=== PATIENT | male | born 1985 | race Hispanic/Latino ===

== ENCOUNTER 2023-11-28 19:50 | Emergency (ER) | payer SELFPAY ==
[2023-11-28 19:53] VITALS: BP 126/82
[2023-11-28 20:06] LABS: % Basophils 0.3 % (0-2); % Eosinophils 0.2 % (0-6); % Immature Granulocytes 0.5 % (0-0.5); % Lymphocytes 14.3 % (20.5-51.1); % Monocytes 7.1 % (1.7-9.3); % Neutrophils 77.6 % (42.2-75.2); Absolute Basophils 0.1 10^3/uL (0-0.2); Absolute Immature Granulocytes 0.1 10^3/uL (0-0.05); Absolute Lymphocytes 2.8 10^3/uL (1.2-3.4); Absolute Monocytes 1.4 10^3/uL (0.1-0.6); Absolute Neutrophils 15.4 10^3/uL (1.4-6.5); Hematocrit 47.9 % (39.0-52.0); Hemoglobin 16.9 g/dL (13.0-18.0); Mean Corp Hgb Conc. 35.3 g/dL (33.0-37.0); Mean Corpuscular Hgb 31.8 pg (27.0-31.0); Mean Corpuscular Volume 90.2 fL (80.0-94.0); Mean Platelet Volume 10.5 fL (7.4-10.4); Nucleated Red Blood Cells % 0 % (-); Platelet Count 262 10^3/uL (130-400); Red Blood Cell Count 5.31 10^6/uL (4.70-6.10); Red Cell Dist. Width 12.4 % (11.5-14.5); White Blood Cell Count 19.8 10^3/uL (4.8-10.8)
[2023-11-28 20:26] LABS: ALT (SGPT) 211 U/L (0-50); AST (SGOT) 94 U/L (17-59); Albumin 4.8 g/dl (3.5-5.0); Alkaline Phosphatase 81 U/L (38-126); Blood Urea Nitrogen 18 mg/dl (9-20); Calcium 9.8 mg/dl (8.4-10.2); Carbon Dioxide 26 mmol/L (22-30); Chloride 101 mmol/L (98-107); Glucose 135 mg/dl (70-99); Potassium 4.6 mmol/L (3.5-5.1); Sodium 136 mmol/L (135-145); Total Protein 7.6 g/dl (6.3-8.2); eGFR > 60.00
[2023-11-28 20:34] VITALS: BP 126/82
[2023-11-28 20:40] VITALS: BMI 28.7
--- NOTE | 2023-11-28 20:49 | ED.GENMED ---
History of Present Illness
General
Chief Complaint: Allergic Reaction
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
Exam Limitations: none
Time Seen by Provider: 11/28/23 20:27
Nursing documentation reviewed up to this point in time: agreed with
History of Present Illness
History of Present Illness:
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 He developed a generalized rash and swelling feeling in his throat patient took Benadryl 50 mg at 5 PM and went to urgent care where he received an albuterol
nebulization for mild chest discomfort and states his chest is is completely gone. He was also given a dose of Decadron and epinephrine 0.3 mg IM.
He presents in no distress he does have a generalized rash, he states his throat still feels a little bit swollen, denies chest pain or trouble breathing.
Past History
Past History
ED Past Medical History: None
ED Past Surgical History: None
Social History
Tobacco: Non-smoker
Alcohol: None
Personal:
Living: with family
Employment: Employed
Review of Systems
Review of Systems
Allergies reviewed?: Yes
All Other Systems: ROS reviewed and negative except as documented in HPI and ROS
Constitutional: Denies fever
EENT: Denies sore throat or mouth swelling
Respiratory: Denies cough or trouble breathing
Cardiac: Denies chest pain, palpitations or syncope
ABD/GI: Denies abdominal pain or nausea
Musculoskeletal: Reports no symptoms
Skin: Reports rash (Discussed generalized rash, local redness and swelling dorsum of right hand at site of bee sting)
Neurological: Reports no symptoms
Phy Exam
Physical Exam
Physical Exam:
GENERAL: No acute distress. A&Ox3.
CONSTITUTIONAL: Afebrile.
EYES: PERRL, conjunctivae mildly injected
Neck: Supple
ENMT: moist mucus membranes, Pharynx nl
RESPIRATORY: Regular respirations, nonlabored, lungs clear.
CARDIOVASCULAR: Regular rate and rhythm, no murmurs, no rubs.
GI: Soft, nontender, normal BS
MUSCULOSKELETAL: Moves with ease. Well perfused.
SKIN: Warm, dry, generalized rash mainly on anterior trunk, arms and legs.
PSYCH: Normal mood and affect. Well kept, interactive and appropriate
NEUROLOGIC: Awake, alert and oriented. No focal neurological deficits
Course
Orders/Labs/Results
Orders:
Orders
11/28/23 20:01
CMP [Comprehensive Metabolic Panel] Urgent
Complete Blood Count/With Diff Urgent
Abnormal Lab Results
11/28/23
20:01
WBC 19.8 H 10^3/uL
(4.8-10.8)
MCH 31.8 H pg
(27.0-31.0)
MPV 10.5 H fL
(7.4-10.4)
Abs Immat Gran (auto) 0.1 H 10^3/uL
(0-0.05)
Absolute Neuts (auto) 15.4 H 10^3/uL
(1.4-6.5)
Absolute Monos (auto) 1.4 H 10^3/uL
(0.1-0.6)
Neutrophils % 77.6 H %
(42.2-75.2)
Lymphocytes % 14.3 L %
(20.5-51.1)
Glucose 135 H mg/dl
(70-99)
AST 94 H U/L
(17-59)
ALT 211 H U/L
(0-50)
11/28/23 20:01
11/28/23 20:01
Vital Signs
Initial and Last Documented VS:
Initial Vital Signs
Temp Pulse Resp BP Pulse Ox
98.1 F 59 18 126/82 99
07/24/24 19:53 11/28/23 19:53 11/28/23 19:53 11/28/23 19:53 11/28/23 19:53
Last Documented Vital Signs
Temp Pulse Resp BP Pulse Ox
98.1 F 59 18 114/70 98
11/28/23 19:53 11/28/23 19:53 11/28/23 19:53 11/28/23 21:00 11/28/23 21:15
MDM/Problems Addressed
Differential Diagnosis Includes:
allergic reaction, anaphylaxis
MDM/Problems Addressed:
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 He developed a generalized rash and swelling feeling in his throat patient took Benadryl 50 mg at 5 PM and went to urgent care where he received an albuterol
nebulization for mild chest discomfort and states his chest is is completely gone. He was also given a dose of Decadron and epinephrine 0.3 mg IM.
He presents in no distress he does have a generalized rash, he states his throat still feels a little bit swollen, denies chest pain or trouble breathing.
Afebrile, NAD
8:30 PM:
CBC with WBC 19.8 most likely reactive
CMP: Mild elevation in liver enzymes, otherwise normal
Patient remains in no distress
9:15 p.m.
All discharge instructions reviewed with Language Line Iridologist, pt had no questions.
Prescription for EpiPen's and prednisone sent to his pharmacy
He was discharged to the care of his employer.
*Critical Care Note
Total Time (30-74mins, 75-104mins- exclusive of procedures): Not Applicable
ED Attending Note
-
Portions of this chart may have been created with voice recognition software.� Occasional wrong word or��sound alike� substitutions may have occurred due to the inherent limitations of voice recognition software.
Discharge Plan
Departure
Patient Disposition: Home (Routine Discharge)
Date of Disposition: 11/28/23
Time of Disposition: 21:15
Patient with high blood pressure during this ER visit?: No
Condition: Good
Discharge Problem:
Allergic reaction to bee sting
Instructions: Insect Bites and Stings ED, Anaphylaxis - Discharge instructions
Prescriptions:
New
prednisone 20 mg tablet
40 mg PO DAILY Qty: 6 0RF
epinephrine [EpiPen 2-Mika] 0.3 mg/0.3 mL auto-injector
0.3 mg IM Q5-15M PRN (Reason: hypersensitivity reaction) Qty: 2 0RF
Referrals:
NONE,* [Family Provider] -
Activity Restrictions/Additional Instructions:
As we discussed, I sent a prescription to your pharmacy for EpiPen's and also prednisone. Start the prednisone tomorrow as you were given a dose of steroids tonight
Keep 1 EpiPen with you and keep 1 at home
Anytime you are stung, if you start to develop a rash, trouble breathing, chest pain or any symptoms such as you did today give yourself the EpiPen
You may continue the Benadryl 50 mg every 6 hours as needed for rash or swelling.
Interventions
Interventions:
*Risk Screen - Suicide Last Done: 11/28/23 19:53
*General Assessment Last Done: 11/28/23 19:53
*Neglect/Abuse Screening Last Done: 11/28/23 19:53
*Nursing Disposition Last Done: 11/28/23 21:47
ED- Cardiac Assessment Last Done: 11/28/23 20:40
ED- Pulmonary Assessment Last Done: 11/28/23 20:40
ED-Skin Assessment Last Done: 11/28/23 20:40
Discharge Date and Time
Discharge Date/Time: 11/28/23 21:47
Print Language: BENGALI
[2023-11-28 21:00] VITALS: BP 114/70
== END 2023-11-28 21:47 | disposition home or self-care (01) ==
LOC: EMR 19:50
PROVIDERS: Emergency Medicine; EMERGENCY PHYSICIAN Emergency Medicine
DX: T63.441A Toxic effect of venom of bees, accidental (unintentional), initial encounter (principal); Y92.9 Unspecified place or not applicable
CPT/HCPCS: 99283; 80053; 85025